=== PATIENT | female | born 1935 | race Two or more races ===

== ENCOUNTER 2019-02-25 07:22 | Outpatient (CLI) | payer OTHER ==
[2019-02-25] MEDS ORDERED: AVAPRO300 MG PO (08:49)
[2019-02-25] MEDS ORDERED: NORVASC10 MG PO (08:49)
[2019-02-25] MEDS ORDERED: CLONAZEPAM0.5 MG PO (10:57)
[2019-02-25] MEDS ORDERED: RAZADYNE4 MG PO (10:58)
[2019-02-25] MEDS ORDERED: SYNTHROID100 MCG PO (10:58)
[2019-02-25] MEDS ORDERED: ZETIA10 MG PO (10:58)
[2019-02-25] MEDS ORDERED: SIMVASTATIN5 MG PO (10:59)
[2019-02-25] MEDS ORDERED: BUPROPION HCL75 MG PO (10:59)
[2019-02-25] MEDS ORDERED: PLAVIX75 MG PO (11:03)
== END 2019-02-25 07:53 | disposition home or self-care (01) ==
LOC: LAB 07:22 → RAD 07:22 → LAB 07:53
DX: I49.8 Other specified cardiac arrhythmias (principal); D64.89 Other specified anemias; E88.89 Other specified metabolic disorders; D68.8 Other specified coagulation defects; N39.0 Urinary tract infection, site not specified; Z76.89 Persons encountering health services in other specified circumstances; M79.671 Pain in right foot; M20.5X1 Other deformities of toe(s) (acquired), right foot

== ENCOUNTER 2019-03-01 14:13 | Outpatient (CLI) | payer OTHER ==
[~2019-03-01 14:13] MED LIST: AVAPRO300 MG PO; BUPROPION HCL75 MG PO; CLONAZEPAM0.5 MG PO; NORVASC10 MG PO; PLAVIX75 MG PO; RAZADYNE4 MG PO; SIMVASTATIN5 MG PO; SYNTHROID100 MCG PO; ZETIA10 MG PO
== END 2019-03-01 14:16 | disposition home or self-care (01) ==
LOC: RAD 14:13
DX: M25.551 Pain in right hip (principal); M25.561 Pain in right knee; M25.562 Pain in left knee

== ENCOUNTER 2019-03-14 14:55 | Outpatient (CLI) | payer OTHER ==
[2019-03-18] MEDS ORDERED: PAXIL30 MG PO (12:20)
== END 2019-03-14 15:01 | disposition home or self-care (01) ==
LOC: LAB 14:55
DX: N39.0 Urinary tract infection, site not specified (principal)

== ENCOUNTER 2019-03-16 10:33 | Outpatient (CLI) | payer OTHER ==
[2019-03-18] MEDS ORDERED: PAXIL30 MG PO (12:20)
== END 2019-03-16 10:42 | disposition home or self-care (01) ==
LOC: SONOGRAMA 10:33
DX: D17.21 Benign lipomatous neoplasm of skin and subcutaneous tissue of right arm (principal)

== ENCOUNTER 2019-03-21 06:10 | Day surgery (SDC) | payer OTHER ==
[~2019-03-21 06:10] MED LIST changes: +PAXIL30 MG PO
== END 2019-03-21 11:10 | disposition home or self-care (01) ==
LOC: CIR.AMB 06:10
DX: D17.21 Benign lipomatous neoplasm of skin and subcutaneous tissue of right arm (principal)

== ENCOUNTER 2019-04-25 09:05 | Outpatient (CLI) | payer OTHER | END 2019-04-25 09:17 | disposition home or self-care (01) | LOC: LAB 09:05 | DX: D64.89 Other specified anemias (principal); E88.89 Other specified metabolic disorders; D68.8 Other specified coagulation defects; N39.0 Urinary tract infection, site not specified; Z22.322 Carrier or suspected carrier of Methicillin resistant Staphylococcus aureus; I49.8 Other specified cardiac arrhythmias ==

== ENCOUNTER 2019-05-03 05:40 | Day surgery (SDC) | payer OTHER | END 2019-05-03 13:45 | disposition home or self-care (01) | LOC: U 05:40 → CIR.AMB 05:40 | DX: M21.611 Bunion of right foot (principal); M20.11 Hallux valgus (acquired), right foot ==

== ENCOUNTER → 2019-06-08 | Outpatient (CLI) | payer OTHER | END | disposition home or self-care (01) | LOC: RAD 07:52 | DX: M79.671 Pain in right foot (principal); M20.5X1 Other deformities of toe(s) (acquired), right foot ==

== ENCOUNTER 2019-09-07 10:07 | Outpatient (CLI) | payer OTHER | END 2019-09-07 10:08 | disposition home or self-care (01) | LOC: RAD 10:07 | PROVIDERS: ATTEND Orthopaedic Surgery | DX: M25.551 Pain in right hip (principal); M25.552 Pain in left hip ==